=== PATIENT | female | born 1940 | race Caucasian/White ===

== ENCOUNTER → 2020-01-29 | Outpatient (CLI) | payer MEDICARE | END | disposition home or self-care (01) | LOC: CFH 09:53 | PROVIDERS: ATTEND Nurse Practitioner Family | DX: Z12.31 Encounter for screening mammogram for malignant neoplasm of breast (principal); M85.88 Other specified disorders of bone density and structure, other site; N95.8 Other specified menopausal and perimenopausal disorders | CPT/HCPCS: 76641; 77063; 77067; 77080 ==

== ENCOUNTER → 2020-08-15 | Outpatient (CLI) | payer MEDICARE ==
[~2020-08-15] MED LIST: ROSU5TAB PO
[2020-08-15 14:21] LABS: BASOPHILS % (AUTO) 0 % (0-1); EOSINOPHILS % (AUTO) 1 % (1-7); LYMPHOCYTES % (AUTO) 32 % (22-44); MEAN CORPUSCULAR HGB CONC 33.9 g/dL (32.4-35.8); MEAN PLATELET VOLUME 7.7 fL (7.4-10.4); MONOCYTES % (AUTO) 7 % (2-9); NEUTROPHILS % (AUTO) 60 % (42-75); PLATELET COUNT 296 x10^3/uL (130-400); RED BLOOD COUNT 4.57 x10^6/uL (3.82-5.3); RED CELL DISTRIBUTION WIDTH 14.5 % (9.6-15.2)
[2020-08-15 14:23] LABS: MD NO
[2020-08-15 14:27] LABS: ANION GAP 6 mmol/L (5-15); CALCIUM 9.2 mg/dL (8.5-10.1); CHLORIDE 106 mmol/L (98-107)
[2020-08-15 14:28] LABS: CREATININE 0.76 mg/dL (0.55-1.02)
[2020-08-15 14:38] LABS: INTERNATIONAL NORMALIZED RATIO 0.94 (0.93-1.1)
== END | disposition home or self-care (01) ==
LOC: STAR 13:01
PROVIDERS: ATTEND Orthopaedic Surgery
DX: Z01.810 Encounter for preprocedural cardiovascular examination (principal); Z01.818 Encounter for other preprocedural examination; M17.11 Unilateral primary osteoarthritis, right knee; I25.2 Old myocardial infarction; Z79.01 Long term (current) use of anticoagulants; Z20.828 Contact with and (suspected) exposure to other viral communicable diseases
CPT/HCPCS: 80048; 83036; 85025; 85610; 85730; 87081; 87635; 93005

== ENCOUNTER 2020-08-20 06:46 | Day surgery (SDC) | payer MEDICARE ==
[~2020-08-20] VITALS: Ht 167.6 cm; Wt 71.2 kg
[~2020-08-20 06:46] MED LIST changes: +BUPIVACAINE/PF 0.5% ONE; +EPINEPHRINE 1 MG/ML, 1ML ONE; +FENTANYL PF 250 MCG/5ML ONE; +KETOROLAC 60 MG/2 ML ONE; +MIDAZOLAM 1 MG/ML, 2ML ONE; +ROPIvacaine/PF 0.5%, 20 ML ONE; +SODIUM CHLORIDE 0.9% 100 ML ONE; +TRANEXAMIC ACID 100 MG/ML, 10ML ONE; +TRIAMCINOLONE ACETONIDE 40 MG/ML, 1ML ONE; +VANCOMYCIN 1,000 MG ONE
[2020-08-20] MEDS ORDERED: HYDROmorphone 1 MG/ML, 1ML INJ IV PRN (07:00)
[2020-08-20] MEDS ORDERED: MAGNESIUM HYDROXIDE 8%, 30ML UDC PO PRN (07:00)
[2020-08-20] MEDS ORDERED: ZOLPIDEM 5MG TABLET PO PRN (07:00)
[2020-08-20] MEDS ORDERED: NS + 20MEQ KCL 1,000 ML IV SCH (07:00)
[2020-08-20] MEDS ORDERED: BISACODYL 10 MG SUPP PR PRN (07:00)
[2020-08-20] MEDS ORDERED: HYDROcodone/APAP 5/325 TABLET PO PRN (07:00)
[2020-08-20] MEDS ORDERED: OXYcodone IR 5MG TABLET PO PRN (07:00)
[2020-08-20] MEDS ORDERED: SENNA/DOCUSATE TABLET PO PRN (07:00)
[2020-08-20] MEDS ORDERED: ACETAMINOPHEN 650 MG/20.3 ML UDC PO PRN (07:00)
[2020-08-20] MEDS ORDERED: ONDANSETRON 2MG/ML, 2ML IV PRN (07:00)
[2020-08-20] MEDS ORDERED: ONDANSETRON 4 MG TABLET PO PRN (07:00)
[2020-08-20] MEDS ORDERED: CEFAZOLIN PMX 2GM/50ML 50 ML IVPB SCH (07:00)
[2020-08-20] MEDS ORDERED: ACETAMINOPHEN 500 MG TABLET ONE (07:27)
[2020-08-20] MEDS ORDERED: CHLORHEXIDINE 15 ML UDC ONE (07:27)
[2020-08-20] MEDS ORDERED: GABAPENTIN 300 MG CAPSULE ONE (07:28)
[2020-08-20] MEDS ORDERED: DIAZEPAM 5 MG/ML, 2ML IVPush PRN (07:30)
[2020-08-20] MEDS ORDERED: PROMETHAZINE 25 MG/ML, 1ML IV PRN (07:30)
[2020-08-20] MEDS ORDERED: ACETAMINOPHEN 325 MG TABLET PO PRN (07:30)
[2020-08-20] MEDS ORDERED: FENTANYL PF 100 MCG/2ML IV PRN (07:30)
[2020-08-20] MEDS ORDERED: OXYcodone 5 MG/5 ML ORAL.SOL UDC PO PRN (07:30)
[2020-08-20] MEDS ORDERED: HYDROmorphone 2 MG/ML, 1ML IVPush PRN (07:30)
[2020-08-20] MEDS ORDERED: LACTATED RINGERS 1,000 ML IV SCH (07:30)
[2020-08-20] MEDS ORDERED: CHLORHEXIDINE 15 ML UDC MM ONE (07:30)
[2020-08-20] MEDS ORDERED: ALBUTEROL SULFATE 2.5 MG/3 ML NPPB PRN (07:30)
[2020-08-20] MEDS ORDERED: LABETALOL 5MG/ML, 20ML IV PRN (07:30)
[2020-08-20] MEDS ORDERED: hydrALAzine 20 MG/ML, 1ML IV PRN (07:30)
[2020-08-20] MEDS ORDERED: GABAPENTIN 300 MG CAPSULE PO ONE (07:30)
[2020-08-20] MEDS ORDERED: MEPERIDINE/PF 25MG/0.5ML IVPush PRN (07:30)
[2020-08-20] MEDS ORDERED: ACETAMINOPHEN 500 MG TABLET PO ONE (07:30)
[2020-08-20] MEDS ORDERED: PROPOFOL 150 ML ONE (08:11)
[2020-08-20] MEDS ORDERED: DIPHENHYDRAMINE 25 MG CAPSULE PO PRN (08:30)
[2020-08-20] MEDS ORDERED: SUCCINYLCHOLINE 20 MG/ML, 10ML ONE (08:43)
[2020-08-20] MEDS ORDERED: GLYCOPYRROLATE 0.2MG/1ML, 5ML ONE (08:43)
[2020-08-20] MEDS ORDERED: PROPOFOL 10 MG/ML, 20ML ONE (08:43)
[2020-08-20] MEDS ORDERED: ONDANSETRON 2MG/ML, 2ML ONE (08:43)
[2020-08-20] MEDS ORDERED: NEOSTIGMINE 1 MG/ML, 10ML ONE (08:43)
[2020-08-20] MEDS ORDERED: CEFAZOLIN 1,000 MG ONE ×2 (08:43→11:20)
[2020-08-20] MEDS ORDERED: ROCURONIUM 10MG/ML,5ML ONE (08:43)
[2020-08-20] MEDS ORDERED: DEXAMETHASONE 4 MG/ML, 1ML ONE (08:43)
[2020-08-20] MEDS ORDERED: DOCUSATE 100 MG CAPSULE PO SCH (09:00)
[2020-08-20] MEDS ORDERED: MEPERIDINE/PF 25MG/ML,1ML ONE (09:35)
[2020-08-20] MEDS ORDERED: METOPROLOL 1 MG/ML, 5ML ONE (11:20)
[2020-08-20] MEDS ORDERED: hydrALAzine 20 MG/ML, 1ML ONE (11:20)
[2020-08-20] MEDS ORDERED: ASPIRIN 81 MG TABLET EC PO SCH (18:00)
[2020-08-20] MEDS ORDERED: TEMPLATE NON-FORMULARY MED. (Rosuvastatin Calcium** (Crestor**) 5 MG) PO SCH (21:00)
[2020-08-21] MEDS ORDERED: DEXAMETHASONE 4 MG/ML, 1ML IVPush SCH (06:00)
== END 2020-08-20 12:25 | disposition home or self-care (01) ==
LOC: OUT 06:46
PROVIDERS: ATTEND Orthopaedic Surgery
DX: M17.0 Bilateral primary osteoarthritis of knee (principal); M25.761 Osteophyte, right knee; M21.062 Valgus deformity, not elsewhere classified, left knee; M21.061 Valgus deformity, not elsewhere classified, right knee; G89.18 Other acute postprocedural pain; M81.8 Other osteoporosis without current pathological fracture; E78.5 Hyperlipidemia, unspecified; Z79.899 Other long term (current) drug therapy; Z87.891 Personal history of nicotine dependence; Z98.890 Other specified postprocedural states; Z82.49 Family history of ischemic heart disease and other diseases of the circulatory system
CPT/HCPCS: 20610; 27447; 64447; 97110; 97161; 97165; C1713; C1776; J0171; J0330; J0360; J0690; J1100; J1885; J2175; J2250; J2405; J2704; J2710; J2795; J3010; J3301; J3370; J7120